=== PATIENT | female | born 1980 | race Caucasian/White ===

== ENCOUNTER → 2016-11-29 | Outpatient (CLI) | payer BC | LOC: LAB 09:09 | DX: D51.8 Other vitamin B12 deficiency anemias (principal); E55.9 Vitamin D deficiency, unspecified | CPT/HCPCS: 36415; 82607; 82746 ==

== ENCOUNTER → 2020-12-12 | Outpatient (CLI) | payer BC ==
[2020-12-12 08:18] LABS: HEMOGLOBIN 13.7 gm/dl (12.3-15.3); RED BLOOD COUNT 4.34 M/UL (4.00-5.10); WHITE BLOOD COUNT 3.5 K/UL (4.5-11.0)
[2020-12-12 08:38] LABS: BUN/CREATININE RATIO 21 (0-10)
[2020-12-13 08:14] LABS: VITAMIN D, 25-HYDROXY 42.2 ng/mL (30.0-100.0)
[2020-12-13 09:14] LABS: FREE THYROXINE INDEX 2.6 (1.2-4.9); THYROXINE (T4) 7.9 ug/dL (4.5-12.0)
== END ==
LOC: LAB 07:46
PROVIDERS: Advanced Practice Midwife
DX: Z13.1 Encounter for screening for diabetes mellitus (principal); Z13.220 Encounter for screening for lipoid disorders
CPT/HCPCS: 36415; 80053; 80061; 84436; 84439; 84443; 84479; 85025

== ENCOUNTER → 2021-04-03 | Outpatient (CLI) | payer BC | LOC: KOH-I 12:25 | DX: U07.1 COVID-19 (principal) | CPT/HCPCS: 71046 ==

== ENCOUNTER → 2021-09-03 | Outpatient (CLI) | payer BC | LOC: MAMO 15:05 | DX: Z12.31 Encounter for screening mammogram for malignant neoplasm of breast (principal) | CPT/HCPCS: 77063; 77067 ==

== ENCOUNTER → 2021-11-26 | Outpatient (CLI) | payer BC | LOC: HEART 5 12:22 | DX: R00.2 Palpitations (principal); R06.02 Shortness of breath; I34.1 Nonrheumatic mitral (valve) prolapse; R00.0 Tachycardia, unspecified | CPT/HCPCS: 93306 ==